=== PATIENT | female | born 1930 | race Caucasian/White ===

== ENCOUNTER 2017-06-10 14:22 | Emergency (ER) | payer MEDICARE, OTHER ==
[2017-06-10 14:59] LABS: CHLORIDE,CL 102 mmol/L (98-107); SODIUM,NA 136 mmol/L (136-145)
--- NOTE | 2017-06-10 15:50 | EDM.PDOC ---
ED HPI GENERAL MEDICAL PROBLEM - General Chief Complaint: Syncope Stated Complaint: syncope Time Seen by Provider: 06/10/17 14:30 Source of Information: Reports: Patient, Family - History of Present Illness INITIAL COMMENTS - FREE TEXT/NARRATIVE: Patient is a 87-year-old who was brought in status post syncopal episode patient 's history obtained from son says that she had passed out her eyes rolled and he put her in the car and on the way over she had another episode was she was here she was alert and oriented in no acute distress Onset: Sudden Duration: Hour(s): - Related Data Allergies Allergy/AdvReac Type Severity Reaction Status Date / Time No Known Allergies Allergy Verified 06/10/17 14:26 Home Meds: Home Meds Levothyroxine 25 mcg PO ACBREAKFAST 06/10/17 [History] Lisinopril/Hydrochlorothiazide [Lisinopril-Hctz 10-12.5 mg Tab] 40 mg PO DAILY 06/10/17 [History] atorvaSTATin [Lipitor] 40 mg PO BEDTIME 06/10/17 [History] ED ROS GENERAL - Review of Systems Review Of Systems: See Below Constitutional: Reports: No Symptoms HEENT: Reports: No Symptoms Respiratory: Reports: No Symptoms Cardiovascular: Reports: No Symptoms Endocrine: Reports: No Symptoms GI/Abdominal: Reports: No Symptoms : Reports: No Symptoms Musculoskeletal: Reports: No Symptoms Skin: Reports: No Symptoms Neurological: Reports: No Symptoms Psychiatric: Reports: No Symptoms Hematologic/Lymphatic: Reports: No Symptoms Immunologic: Reports: No Symptoms ED EXAM, GENERAL - Physical Exam Exam: See Below Exam Limited By: No Limitations General Appearance: Alert, WD/WN, No Apparent Distress Ears: Normal External Exam, Normal Canal, Hearing Grossly Normal, Normal TMs Nose: Normal Inspection, Normal Mucosa, No Blood Throat/Mouth: Normal Inspection, Normal Lips, Normal Teeth, Normal Gums, Normal Oropharynx, Normal Voice, No Airway Compromise Head: Atraumatic, Normocephalic Neck: Normal Inspection, Supple, Non-Tender, Full Range of Motion Respiratory/Chest: No Respiratory Distress, Lungs Clear, Normal Breath Sounds, No Accessory Muscle Use, Chest Non-Tender Cardiovascular: Normal Peripheral Pulses, Regular Rate, Rhythm, No Edema, No Gallop, No JVD, No Murmur, No Rub GI/Abdominal: Normal Bowel Sounds, Soft, Non-Tender, No Organomegaly, No Distention, No Abnormal Bruit, No Mass (Female) Exam: Deferred Rectal (Female) Exam: Deferred Back Exam: Normal Inspection, Full Range of Motion, NT Extremities: Normal Inspection, Normal Range of Motion, Non-Tender, Normal Capillary Refill, No Pedal Edema Neurological: Alert Psychiatric: Normal Affect, Normal Mood Skin Exam: Warm, Dry, Intact, Normal Color, No Rash Course - Vital Signs Last Recorded V/S: Last Vital Signs Temp 97.5 F 06/10/17 14:24 Pulse 93 06/10/17 14:24 Resp 18 06/10/17 14:24 BP 116/49 L 06/10/17 14:24 Pulse Ox 96 06/10/17 14:24 - Orders/Labs/Meds Orders: Active Orders 24 hr Category Date Time Status EKG Documentation Completion [RC] ASDIRECTED Care 06/10/17 14:30 Active Chest 1V Frontal [CR] Stat Exams 06/10/17 14:24 Taken Labs: Laboratory Tests 06/10/17 06/10/17 06/10/17 Range/Units 14:30 14:30 14:30 WBC 10.9 H (4.0-10.2) K/uL RBC 4.16 (3.77-5.09) M/uL Hgb 12.2 (11.7-15.5) g/dL Hct 37.7 (34.0-46.0) % MCV 90.6 D (84.0-98.0) fL MCH 29.3 (28.2-33.3) pg MCHC 32.4 (31.7-36.0) g/dL RDW 13.4 (11.2-14.1) % Plt Count 265 (150-350) K/uL Neut % (Auto) 51.8 (45.0-80.0) % Lymph % (Auto) 35.1 (10.0-50.0) % [place] % (Auto) 9.8 (2.0-14.0) % Eos % (Auto) 2.9 (0.0-5.0) % Baso % (Auto) 0.4 (0.0-2.0) % Neut # (Auto) 5.65 (1.40-7.00) K/uL Lymph # (Auto) 3.81 H (0.50-3.50) K/uL [place] # (Auto) 1.06 H (0.00-1.00) K/uL Eos # (Auto) 0.31 (0.00-0.50) K/uL Baso # (Auto) 0.04 (0.00-0.20) K/uL Sodium 136 (136-145) mmol/L Potassium 4.0 (3.5-5.1) mmol/L Chloride 102 (98-107) mmol/L Carbon Dioxide 26.8 (21.0-32.0) mmol/L BUN 27 H (7-18) mg/dL Creatinine 1.14 (0.51-1.17) mg/dL Est Cr Clr Drug Dosing TNP Estimated GFR (MDRD) 45 mL/min Glucose 129 H (74-106) mg/dL Calcium 9.1 (8.5-10.1) mg/dL Troponin I 0.005 (0.000-0.056) ng/mL Departure - Departure Time of Disposition: 15:51 Disposition: Against Medical Advice 07 Clinical Impression: Syncope and collapse - Discharge Information Forms: ED Department Discharge - Problem List & Annotations (1) Syncope and collapse SNOMED Code(s): 131379202 Code(s): R55 - SYNCOPE AND COLLAPSE Status: Acute - Problem List Review Problem List Initiated/Reviewed/Updated: Yes - My Orders Last 24 Hours: My Active Orders 06/10/17 14:24 Chest 1V Frontal [CR] Stat 06/10/17 14:30 EKG Documentation Completion [RC] ASDIRECTED - Assessment/Plan Last 24 Hours: My Active Orders 06/10/17 14:24 Chest 1V Frontal [CR] Stat 06/10/17 14:30 EKG Documentation Completion [RC] ASDIRECTED Plan: I would like to admit patient for OBS related to the 2 syncope episodes, but patient is refusing at this time. States "I feel fine" . I would like to place her on a cardiac rehabilitation specialist for OBS. Patient has stated she will go home AMA. Patient does not want to stay in the hospital.
== END 2017-06-10 16:05 | disposition left against medical advice (07) ==
LOC: LL.ED 14:22
DX: R55 Syncope and collapse (principal)
CPT/HCPCS: 36000; 36415; 71010; 80048; 84484; 85025; 93005; 99283; 99284

== ENCOUNTER 2021-02-04 19:00 | Emergency (ER) | payer MEDICARE, OTHER ==
[2021-02-04] MEDS ORDERED: Famotidine 20 MG/2 ML SDV IVPUSH ONE (19:02)
[2021-02-04] MEDS ORDERED: Sodium Chloride 0.9% 10 ML Syringe FLUSH PRN (19:02)
--- NOTE | 2021-02-04 19:02 | EDM.PDOC ---
ED HPI GENERAL MEDICAL PROBLEM - General Chief Complaint: Neuro Symptoms/Deficits Stated Complaint: stroke code Time Seen by Provider: 02/04/21 19:02 Source of Information: Reports: Patient, EMS, Family ([id number], Kelly), Old Records ([facility] chart/EMR). Denies: EMS Notes Reviewed (Not available at time of dictation) History Limitations: Reports: Altered Mental Status - History of Present Illness INITIAL COMMENTS - FREE TEXT/NARRATIVE: Patient was brought to the emergency room via ambulance with evaluator in accompaniment with IV placed and initial IV bolus of 300 cc of normal saline. Stat Accu-Chek by the evaluator was 111 mg percent. The patient is an extremely poor historian secondary to her confusion and probable CVA with the majority of history taken from her [id number], which is extremely limited. Based on her history no significant recent problems. The patient's status was normal at noon based on history from her grandson, who found her kneeling on the floor at about 5 PM this afternoon with his mother called at that time. The patient exhibited some right-sided weakness, moderate confusion, moderate dysarthria, and difficulty following commands. Per history from the [id number]-[id number] no recent chest pain/pressure, heart flutter, dizziness, orthostasis, orthopnea, diaphoresis, paresthesias, recent decreased exercise tolerance, or any other anginal-type symptoms. No recent history of abdominal pain, heartburn, nausea, diarrhea, melena, gross hematochezia, or any food intolerance, including fatty foods, etc.. No apparent recent UTI symptoms. In addition, no apparent recent fever, cough, wheezing, dyspnea, etc.. She did receive her second Covid injection on 01/01/2021 with some mild right leg arthralgias at that time. No history of recent headaches, visual changes, diplopia, or other change in neurological status prior to today's episode. No apparent current pain or discomfort. No history of significant fall, head injury, etc. Onset: Today, Unknown/Unsure Onset Date: 02/04/21 Duration: Constant Location: Reports: Other (No pain) Improves with: Reports: None Worsens with: Reports: None Context: Reports: Other (As above). Denies: Sick Contact, Trauma Associated Symptoms: Reports: Confusion, Weakness (Right hemiparesis). 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 Denies: [place] Other Cardiovascular History: Syncopal episode on 06/10/2017 with patient refusing further work-up at that time. Evidence of probable lateral wall cardiac ischemia by EKG on that visit with no known previous history of [place], cardiac procedures, etc. 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 Neurological History: Reports: None. Denies: Seizure Endocrine/Metabolic History: Reports: Hypothyroidism. Denies: Diabetes, Type I, Diabetes, Type II, IDDM - Past Surgical History HEENT Surgical History: Reports: Oral Surgery, Other (See Below) Other HEENT Surgeries/Procedures: Complete teeth extraction with patient having dentures Musculoskeletal Surgical History: Reports: ORIF, Other (See Below) Other Musculoskeletal Surgeries/Procedures:: ORIF/adenike placement of right tibia with subsequent removal. Social & Family History - Living Situation & Occupation Living situation: Reports: Alone (In her apartment) ED ROS GENERAL - Review of Systems Review Of Systems: Unable To Obtain Reason Not Obtained: Indirect history from her [id number] as above. ED EXAM, NEURO - Physical Exam Exam: See Below Exam Limited By: Altered Mental Status General Appearance: Alert, No Apparent Distress Eye Exam: Right Eye: Vision Changes (Questionable loss in right eye), Bilateral Eye: EOMI, Normal Fundi, Normal Inspection (No nystagmus or vertigo), PERRL Ears: Normal External Exam, Normal Canal, Normal TMs, Hearing Loss (Mild bilateral presbycusis) Nose: Normal Inspection, Normal Mucosa, No Blood Throat/Mouth: Normal Gums, Normal Oropharynx, Normal Voice, No Airway Comp romise. No: Normal Teeth (Complete absent dentition with no dentures present), Dysphagia, Inflammation, Perioral Cyanosis Head Exam: Atraumatic, Normocephalic. No: Facial Swelling, Facial Tenderness, Sinus Tenderness Neck: Supple, Non-Tender, Full Range of Motion, Carotid Bruit (Mild bilateral carotid bruits versus transmitted heart sounds). No: Lymphadenopathy (R), Thyromegaly Respiratory/Chest: No Respiratory Distress, No Accessory Muscle Use, Chest Non- Tender, Rales (Mild bilateral baseline). No: Lungs Clear, Normal Breath Sounds, Pleural Rub, Accessory Muscle Use, Retractions Cardiovascular: Normal Peripheral Pulses, Regular Rate, Rhythm, No Edema, No Gallop, No JVD, No Rub, Systolic Murmur (Borderline 1/6 ANDREZ of the aortic valve.). No: Gallop/S3, Gallop/S4, Friction Rub GI/Abdominal: Normal Bowel Sounds, Soft, Non-Tender, No Organomegaly, No Distention, No Abnormal Bruit, No Mass, Pelvis Stable, Other (Obese). No: Guarding (Female) Exam: Deferred Rectal (Female) Exam: Deferred Neurological: Alert, Normal Mood/Affect, Normal Dorsiflexion, Normal Plantar Flexion, Normal Reflexes, Oriented x 3, Difficulty Walking, Other (Patient is unable to perform commands. Mild right-sided hemiparesis mainly in the arm and hand. Patient is not able to completely perform neurological exam including [id number] test, pronator test, etc. Note moderate dysarthria and confusion with additional aphasia component.). No: Normal Gait, Babinski Back Exam: Normal Inspection, Full Range of Motion. No: CVA Tenderness (L), CVA Tenderness (R), Muscle Spasm Extremities: Normal Inspection, Normal Range of Motion, Non-Tender, No Pedal Edema, Normal Capillary Refill Psychiatric: Normal Affect, Normal Mood Skin Exam: Warm, Dry, Intact, Normal Color, No Rash. No: Diaphoretic, Wound/Incision #1 Interpretation EKG Date: 02/04/21 Time: 19:18 Rhythm: NSR Rate (Beats/Min): 90 Inlet: Normal (Neutral) P-Wave: Present (Noisy baseline) QRS: Normal (0.06 seconds) ST-T: Other (Stable T wave inversions in leads aVL and V2-V4 with mild progression to V5) FL/PQ Interval: 0.17 seconds. Pulmonary hypertension by EKG Comparison: Change From Previous EKG (As above since 06/10/2017) EKG Interpretation Comments: 1. Possible lateral wall cardiac ischemia 2. Pulmonary hypertension by EKG Course - Vital Signs Last Recorded V/S: Last Vital Signs Temp 36.2 C 02/04/21 19:15 Pulse 86 02/04/21 19:45 Resp 25 H 02/04/21 19:45 BP 148/92 H 02/04/21 19:45 Pulse Ox 100 02/04/21 19:45 - Orders/Labs/Meds Orders: Active Orders 24 hr Category Date Time Status Cardiac Monitoring [RC] STAT Care 02/04/21 19:02 Active Communication Order [RC] PER UNIT ROUTINE Care 02/04/21 19:02 Active EKG Documentation Completion [RC] ASDIRECTED Care 02/04/21 19:02 Active NIH Stroke Scale [RC] ASDIRECTED Care 02/04/21 19:02 Active Oxygen Therapy, ED [RC] PRN Care 02/04/21 19:02 Active Peripheral IV Care [RC] . DIRECTED Care 02/04/21 19:02 Active Pulse Oximetry [RC] CONTINUOUS Care 02/04/21 19:02 Active Up With Assistance [RC] ASDIRECTED Care 02/04/21 19:02 Active Vital Signs [RC] PFP Care 02/04/21 19:02 Active Nothing per Oral Now Diet [DIET] Diet 02/04/21 Breakfast Active Chest 1V Frontal [CR] Stat Exams 02/04/21 19:02 Taken Head wo Cont [CT] Stat Exams 02/04/21 19:02 Taken PROLACTIN [REF] Stat Lab 02/04/21 19:15 Received UA W/MICROSCOPIC [URIN] Stat Lab 02/04/21 19:02 Ordered Sodium Chloride 0.9% [Saline Flush] Med 02/04/21 19:02 Active 10 ml FLUSH ASDIRECTED PRN Obtain Past Medical Record [OM.PC] Stat Oth 02/04/21 19:02 Active Peripheral IV Insertion Adult [OM.PC] Stat Oth 02/04/21 19:02 Ordered Resuscitation Status Stat Resus Stat 02/04/21 19:02 Ordered Medication Orders Sodium Chloride (Sodium Chloride 0.9% 10 Ml Syringe) 10 ml FLUSH ASDIRECTED PRN PRN Reason: Keep Vein Open Last Admin: 02/04/21 19:31 Dose: 10 ml Documented by: GWENDOLYN Labs: Laboratory Tests 02/04/21 02/04/21 02/04/21 Range/Units 19:15 19:15 19:15 WBC 8.5 (4.0-10.2) K/uL RBC 4.62 (3.77-5.09) M/uL Hgb 12.8 (11.7-15.5) g/dL Hct 40.9 (34.0-46.0) % MCV 88.5 (84.0-98.0) fL MCH 27.7 L (28.2-33.3) pg MCHC 31.3 L (31.7-36.0) g/dL RDW 13.4 (11.2-14.1) % Plt Count 232 (150-350) K/uL Neut % (Auto) 71.4 (45.0-80.0) % Lymph % (Auto) 16.1 (10.0-50.0) % Braxton % (Auto) 10.3 (2.0-14.0) % Eos % (Auto) 2.0 (0.0-5.0) % Baso % (Auto) 0.2 (0.0-2.0) % Neut # (Auto) 6.09 (1.40-7.00) K/uL Lymph # (Auto) 1.37 (0.50-3.50) K/uL Braxton # (Auto) 0.88 (0.00-1.00) K/uL Eos # (Auto) 0.17 (0.00-0.50) K/uL Baso # (Auto) 0.02 (0.00-0.20) K/uL PT 9.9 (9.5-12.0) SEC INR 1.0 APTT 24.5 (24.5-32.8) SEC D-Dimer, Quantitative 562 H (0-400) ng/mL Sodium (136-145) mmol/L Potassium (3.5-5.1) mmol/L Chloride (98-107) mmol/L Carbon Dioxide (21.0-32.0) mmol/L BUN (7-18) mg/dL Creatinine (0.51-1.17) mg/dL Est Cr Clr Drug Dosing Estimated GFR (MDRD) mL/min Glucose (70-99) mg/dL Lactic Acid (0.4-2.0) mmol/L Uric Acid (2.6-7.2) mg/dL Calcium (8.5-10.1) mg/dL Magnesium (1.8-2.4) mg/dL Total Bilirubin (0.2-1.0) mg/dL AST (15-37) U/L ALT (12-78) U/L Alkaline Phosphatase (46-116) IU/L Creatine Kinase (26-308) U/L Creatine Kinase Index (0.0-2.5) % CK-MB (CK-2) (0.00-3.60) ng/mL Troponin I (0.000-0.056) ng/mL NT-Pro-B Natriuret Pep (0-125) pg/mL Total Protein (6.4-8.2) g/dL Albumin (3.4-5.0) g/dL TSH, Ultra Sensitive (0.358-3.740) mIU/mL 02/04/21 02/04/21 Range/Units 19:15 19:15 WBC (4.0-10.2) K/uL RBC (3.77-5.09) M/uL Hgb (11.7-15.5) g/dL Hct (34.0-46.0) % MCV (84.0-98.0) fL MCH (28.2-33.3) pg MCHC (31.7-36.0) g/dL RDW (11.2-14.1) % Plt Count (150-350) K/uL Neut % (Auto) (45.0-80.0) % Lymph % (Auto) (10.0-50.0) % Braxton % (Auto) (2.0-14.0) % Eos % (Auto) (0.0-5.0) % Baso % (Auto) (0.0-2.0) % Neut # (Auto) (1.40-7.00) K/uL Lymph # (Auto) (0.50-3.50) K/uL Braxton # (Auto) (0.00-1.00) K/uL Eos # (Auto) (0.00-0.50) K/uL Baso # (Auto) (0.00-0.20) K/uL PT (9.5-12.0) SEC INR APTT (24.5-32.8) SEC D-Dimer, Quantitative (0-400) ng/mL Sodium 140 (136-145) mmol/L Potassium 4.0 (3.5-5.1) mmol/L Chloride 102 (98-107) mmol/L Carbon Dioxide 27.2 (21.0-32.0) mmol/L BUN 22 H (7-18) mg/dL Creatinine 0.82 (0.51-1.17) mg/dL Est Cr Clr Drug Dosing TNP Estimated GFR (MDRD) > 60 mL/min Glucose 117 H (70-99) mg/dL Lactic Acid 1.3 (0.4-2.0) mmol/L Uric Acid 5.0 (2.6-7.2) mg/dL Calcium 9.4 (8.5-10.1) mg/dL Magnesium 1.4 L (1.8-2.4) mg/dL Total Bilirubin 0.7 (0.2-1.0) mg/dL AST 20 (15-37) U/L ALT 19 (12-78) U/L Alkaline Phosphatase 75 (46-116) IU/L Creatine Kinase 71 (26-308) U/L Creatine Kinase Index 1.8 (0.0-2.5) % CK-MB (CK-2) 1.30 (0.00-3.60) ng/mL Troponin I 0.017 (0.000-0.056) ng/mL NT-Pro-B Natriuret Pep 3585 H (0-125) pg/mL Total Protein 7.4 (6.4-8.2) g/dL Albumin 3.9 (3.4-5.0) g/dL TSH, Ultra Sensitive 2.524 (0.358-3.740) mIU/mL Meds: Medications Generic Name Dose Route Start Last Admin Trade Name Freq PRN Reason Stop Dose Admin Sodium Chloride 10 ml 02/04/21 19:02 02/04/21 19:31 Sodium Chloride 0.9% 10 Ml Syringe FLUSH 10 ml ASDIRECTED PRN Administration Keep Vein Open Discontinued Medications Generic Name Dose Route Start Last Admin Trade Name Freq PRN Reason Stop Dose Admin Famotidine 40 mg 02/04/21 19:02 02/04/21 19:31 Famotidine 20 Mg/2 Ml Sdv IVPUSH 02/04/21 19:03 40 mg ONETIME ONE Administration - Radiology Interpretation Free Text/Narrative:: 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 No pulmonary infiltrates, pneumothorax or significant CHF. Telephone consultation at 7:33 PM with the radiology department at [facility]. Preliminary verbal report of noncontrast CT scanning of the head was relatively normal with exception of moderate cerebral atrophy and cerebral microvascular disease. Possible old right basilar ganglion/lacunar infarct. No cerebral hemorrhage, etc. CT Results Date: 02/04/21 CT Results Time: 19:33 Departure - Departure Time of Disposition: 20:10 Disposition: DC/Tfer to Acute Hospital 02 Condition: Poor Clinical Impression: Hypothyroidism (acquired), PAC (premature atrial contraction), D-dimer, elevated, Hypomagnesemia CVA (cerebral vascular accident) Qualifiers: CVA mechanism: occlusion Precerebral and cerebral artery: middle cerebral artery Laterality of affected vessel: right Qualified Code(s): I63.511 - Cerebral infarction due to unspecified occlusion or stenosis of right middle cerebral artery Hypertension Qualifiers: Hypertension type: essential hypertension Qualified Code(s): I10 - Essential (primary) hypertension Hyperlipidemia Qualifiers: Hyperlipidemia type: unspecified Qualified Code(s): E78.5 - Hyperlipidemia, unspecified Osteoarthritis Qualifiers: Osteoarthritis location: multiple joints Osteoarthritis type: primary Qualified Code(s): M89.49 - Other hypertrophic osteoarthropathy, multiple sites COPD (chronic obstructive pulmonary disease) Qualifiers: COPD type: emphysema Emphysema type: panlobular Qualified Code(s): J43.1 - Panlobular emphysema Coronary artery disease Qualifiers: Coronary Disease-Associated Artery/Lesion type: [place] artery [place] vs. transplanted heart: [place] heart Associated angina: without angina Qualified Code(s): I25.10 - Atherosclerotic heart disease of [place] coronary artery without angina pectoris CHF (congestive heart failure) Qualifiers: Heart failure type: unspecified Heart failure chronicity: acute Qualified Code(s): I50.9 - Heart failure, unspecified - Discharge Information *PRESCRIPTION DRUG MONITORING PROGRAM REVIEWED*: Not Applicable *COPY OF PRESCRIPTION DRUG MONITORING REPORT IN PATIENT TARA: Not Applicable Referrals: PCP,None [Primary Care Provider] - Forms: ED Department Discharge, Interfacility Transfer EMTALA Sepsis Event Note (ED) - Focused Exam Vital Signs: Vital Signs Temp Pulse Resp BP Pulse Ox Pulse Ox 02/04/21 19:45 86 25 H 148/92 H 100 02/04/21 19:30 94 24 H 145/80 H 99 02/04/21 19:28 96 96 02/04/21 19:15 36.2 C 24 L 19 170/90 H 91 L - Problem List & Annotations (1) CVA (cerebral vascular accident) SNOMED Code(s): 248512829 Code(s): I63.9 - CEREBRAL INFARCTION, UNSPECIFIED Status: Acute Priority: High Onset Date: 02/04/21 Annotation/Comment:: Probable CVA with no improvement of her neurological status during her care in our emergency room. Stroke code was called by the evaluator prior to arrival to this facility with entire treatment team present at time of patient's arrival. Telephone consultation and 7:[address] Eason, stroke neurologist at [facility], who does accept the patient for further treatment and e valuation. Per his instructions patient should be transferred immediately without waiting for results of CT scan of the head, blood work, etc. with aspirin also to be held at this time per his instructions. Blood pressures were significantly improved prior to patient's transfer via ambulance with evaluator accompaniment. FULL CODE STATUS confirmed with the patient's [id number], Kelly. Note NIH stroke score of 6 with no evidence of dysphagia or aspiration. Qualifiers: CVA mechanism: occlusion Precerebral and cerebral artery: middle cerebral artery Laterality of affected vessel: right Qualified Code(s): I63.511 - Cerebral infarction due to unspecified occlusion or stenosis of right middle cerebral artery (2) D-dimer, elevated SNOMED Code(s): 706682910 Code(s): R79.89 - OTHER SPECIFIED ABNORMAL FINDINGS OF BLOOD CHEMISTRY Status: Acute Priority: High Onset Date: 02/04/21 Annotation/Comment:: Likely secondary to her CVA. No clinical evidence of DVT or PE. Further work- up by accepting providers depending on her clinical course. (3) CHF (congestive heart failure) SNOMED Code(s): 64576556 Code(s): I50.9 - HEART FAILURE, UNSPECIFIED Status: Acute Priority: High Onset Date: 02/04/21 Annotation/Comment:: No chest pain or anginal complaints. Only minimal CHF by clinical exam with no significant chest x-ray findings. BNP is elevated with only mild secondary change of troponin I with otherwise normal cardiac enzymes. Consider echocardiogram by accepting providers. Qualifiers: Heart failure type: unspecified Heart failure chronicity: acute Qualified Code(s): I50.9 - Heart failure, unspecified (4) Coronary artery disease SNOMED Code(s): 59406007 Code(s): I25.10 - ATHSCL HEART DISEASE OF [place] CORONARY ARTERY W/O ANG PCTRS Status: Chronic Priority: Medium Annotation/Comment:: No chest pain or anginal type symptoms. Note distant history of syncope in May 2017 with patient refusing cardiac work-up at that time and evidence of probable lateral wall ischemia. Cardiology consultation by accepting providers depending on her clinical course. Qualifiers: Coronary Disease-Associated Artery/Lesion type: [place] artery [place] vs. transplanted heart: [place] heart Associated angina: without angina Qualified Code(s): I25.10 - Atherosclerotic heart disease of [place] coronary artery without angina pectoris (5) Hypertension SNOMED Code(s): 40450974 Code(s): I10 - ESSENTIAL (PRIMARY) HYPERTENSION Status: Chronic Priority: High Annotation/Comment:: Somewhat elevated initially however improved prior to transfer without any treatment required. The patient apparently has long since discontinued her antihypertensive medication in the past. Qualifiers: Hypertension type: essential hypertension Qualified Code(s): I10 - Essential (primary) hypertension (6) Hyperlipidemia SNOMED Code(s): 41619252 Code(s): E78.5 - HYPERLIPIDEMIA, UNSPECIFIED Status: Chronic Priority: Medium Annotation/Comment:: Patient has also apparently previously discontinued her anticholesterol therapy in the past Qualifiers: Hyperlipidemia type: unspecified Qualified Code(s): E78.5 - Hyperlipidemia, unspecified (7) Osteoarthritis SNOMED Code(s): 880579097 Code(s): M19.90 - UNSPECIFIED OSTEOARTHRITIS, UNSPECIFIED SITE Status: Chronic Priority: Medium Annotation/Comment:: Stable by history with no recent fall or injury. Qualifiers: Osteoarthritis location: multiple joints Osteoarthritis type: primary Qualified Code(s): M89.49 - Other hypertrophic osteoarthropathy, multiple sites (8) Hypothyroidism (acquired) SNOMED Code(s): 970289224 Code(s): E03.9 - HYPOTHYROIDISM, UNSPECIFIED Status: Chronic Priority: Medium Annotation/Comment:: TSH normal today. She has been compliant with her Synthroid. (9) COPD (chronic obstructive pulmonary disease) SNOMED Code(s): 30220944 Code(s): J44.9 - CHRONIC OBSTRUCTIVE PULMONARY DISEASE, UNSPECIFIED Status: Chronic Priority: Medium Annotation/Comment:: COPD by chest x-ray with no current medical therapy, recent fever, or recent bronchitic type symptoms. Qualifiers: COPD type: emphysema Emphysema type: panlobular Qualified Code(s): J43.1 - Panlobular emphysema (10) Hypomagnesemia SNOMED Code(s): 521581324 Code(s): E83.42 - HYPOMAGNESEMIA Status: Acute Priority: Medium Onset Date: 02/04/21 Annotation/Comment:: Note occasional PACs versus sinus arrhythmia. Consider IV magnesium sulfate by accepting providers. (11) PAC (premature atrial contraction) SNOMED Code(s): 434310393 Code(s): I49.1 - ATRIAL PREMATURE DEPOLARIZATION Status: Acute Priority: Medium Onset Date: 02/04/21 Annotation/Comment:: As above - Problem List Review Problem List Initiated/Reviewed/Updated: Yes - My Orders Last 24 Hours: My Active Orders 02/04/21 Breakfast Nothing per Oral Now Diet [DIET] 02/04/21 19:02 Cardiac Monitoring [RC] STAT Communication Order [RC] PER UNIT ROUTINE EKG Documentation Completion [RC] ASDIRECTED NIH Stroke Scale [RC] ASDIRECTED Oxygen Therapy, ED [RC] PRN Peripheral IV Care [RC] . DIRECTED Pulse Oximetry [RC] CONTINUOUS Up With Assistance [RC] ASDIRECTED Vital Signs [RC] PFP Chest 1V Frontal [CR] Stat Head wo Cont [CT] Stat UA W/MICROSCOPIC [URIN] Stat Sodium Chloride 0.9% [Saline Flush] 10 ml FLUSH ASDIRECTED PRN Obtain Past Medical Record [OM.PC] Stat Peripheral IV Insertion Adult [OM.PC] Stat Resuscitation Status Stat 02/04/21 19:15 PROLACTIN [REF] Stat - Assessment/Plan Last 24 Hours: My Active Orders 02/04/21 Breakfast Nothing per Oral Now Diet [DIET] 02/04/21 19:02 Cardiac Monitoring [RC] STAT Communication Order [RC] PER UNIT ROUTINE EKG Documentation Completion [RC] ASDIRECTED NIH Stroke Scale [RC] ASDIRECTED Oxygen Therapy, ED [RC] PRN Peripheral IV Care [RC] . DIRECTED Pulse Oximetry [RC] CONTINUOUS Up With Assistance [RC] ASDIRECTED Vital Signs [RC] PFP Chest 1V Frontal [CR] Stat Head wo Cont [CT] Stat UA W/MICROSCOPIC [URIN] Stat Sodium Chloride 0.9% [Saline Flush] 10 ml FLUSH ASDIRECTED PRN Obtain Past Medical Record [OM.PC] Stat Peripheral IV Insertion Adult [OM.PC] Stat Resuscitation Status Stat 02/04/21 19:15 PROLACTIN [REF] Stat Assessment:: As above Plan: As above. Extensive precautions were given to the patient and her [id number], who are in agreement with the treatment plan. Ambulance transfer to [facility] in [place] as above.
[2021-02-04 19:35] LABS: PTT,PARTIAL THROMBOPLSTIN TIME 24.5 SEC (24.5-32.8)
[2021-02-04 19:48] LABS: CHLORIDE,CL 102 mmol/L (98-107); SODIUM,NA 140 mmol/L (136-145)
== END 2021-02-04 20:10 ==
LOC: LL.ED 19:00
DX: I63.511 Cerebral infarction due to unspecified occlusion or stenosis of right middle cerebral artery (principal); E03.9 Hypothyroidism, unspecified; I49.1 Atrial premature depolarization; R79.1 Abnormal coagulation profile; E83.42 Hypomagnesemia; I10 Essential (primary) hypertension; J44.9 Chronic obstructive pulmonary disease, unspecified; Z79.899 Other long term (current) drug therapy
CPT/HCPCS: 36415; 70450; 71045; 80053; 82550; 82553; 83605; 83735; 83880; 84146; 84443; 84484; 84550; 85025; 85379; 85610; 85730; 93005; 93010; 96374; 99285; 99285-25; J3490

== ENCOUNTER 2021-03-01 15:54 | Emergency (ER) | payer MEDICARE, OTHER ==
--- NOTE | 2021-03-01 16:49 | EDM.PDOC ---
ED HPI GENERAL MEDICAL PROBLEM - General Chief Complaint: General Stated Complaint: neck and back pain Time Seen by Provider: 03/01/21 16:10 Source of Information: Reports: Patient, Family History Limitations: Reports: No Limitations - History of Present Illness INITIAL COMMENTS - FREE TEXT/NARRATIVE: Pt presents with upper neck pain Has been intermittent Was recently diagnosed with lumbar spinal stenosis per family Had lumbar MRI at that time No cervical MRI No parathesias No weakness Has not taken anything for pain except Tylenol 500 mg one time Onset: Gradual Duration: Intermittent Location: Reports: Neck Quality: Reports: Ache Treatments 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: Reports: Acetaminophen Bilateral Lower Leg Pain Score (Numeric/FACES): 7 Neck Pain Score (Numeric/FACES): 7 - Related Data Allergies Allergy/AdvReac Type Severity Reaction Status Date / Time lisinopril AdvReac Cough Verified 03/01/21 16:04 Home Meds: Home Meds Levothyroxine 25 mcg PO ACBREAKFAST 06/10/17 [History] Aspirin [Aspirin EC] 1 tab PO DAILY 03/01/21 [History] Clopidogrel [Plavix] 1 tab PO DAILY 03/01/21 [History] Cyanocobalamin (Vitamin B-12) [B-12] 1 tab PO BEDTIME 03/01/21 [History] Furosemide [Lasix] 1 tab PO ASDIRECTED 03/01/21 [History] Magnesium Oxide [Magnesium] 2 cap PO DAILY 03/01/21 [History] Pantoprazole Sodium [Protonix] 1 tab PO BEDTIME 03/01/21 [History] Spironolactone [Aldactone] 1 tab PO DAILY 03/01/21 [History] atorvaSTATin [Lipitor] 1.5 tab PO BEDTIME 03/01/21 [History] carvediloL [Carvedilol] 1 tab PO BID 03/01/21 [History] Past Medical History HEENT History: Reports: Hard of Hearing, Other (See Below) Other HEENT History: Mild presbycusis Cardiovascular History: Reports: CAD, High Cholesterol, Hypertension, Syncope, Other (See Below) Other Cardiovascular History: Syncopal episode on 06/10/2017 with patient refusing further work-up at that time. Evidence of probable lateral wall cardiac ischemia by EKG on that visit with no known previous history of [place], cardiac procedures, etc. 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 Neurological History: Reports: None Endocrine/Metabolic History: Reports: Hypothyroidism - Infectious Disease History Infectious Disease History: Reports: Chicken Pox, Measles, Mumps - Past Surgical History HEENT Surgical History: Reports: Oral Surgery, Other (See Below) Other HEENT Surgeries/Procedures: Complete teeth extraction with patient having dentures Musculoskeletal Surgical History: Reports: ORIF, Other (See Below) Other Musculoskeletal Surgeries/Procedures:: ORIF/adenike placement of right tibia with subsequent removal. Social & Family History - Tobacco Use Tobacco Use Status *Q: Never Tobacco User Second Hand Smoke Exposure: No - Caffeine Use Caffeine Use: Reports: None - Recreational Drug Use Recreational Drug Use: No - Living Situation & Occupation Living situation: Reports: Alone (In her apartment) ED ROS GENERAL - Review of Systems Review Of Systems: See Below HEENT: Reports: No Symptoms Musculoskeletal: Reports: Neck Pain, Back Pain ED EXAM, GENERAL - Physical Exam Exam: See Below Exam Limited By: No Limitations General Appearance: Alert, WD/WN, No Apparent Distress Neck: Limited Range of Motion, Other (Mildly tender with palpation of paracervical fly Spine non-tender) Neurological: No Motor/Sensory Deficits, Other (No focal findings) Course - Vital Signs Last Recorded V/S: Last Vital Signs Temp 99.3 F 03/01/21 16:06 Pulse 88 03/01/21 16:06 Resp 19 03/01/21 16:06 BP 141/78 H 03/01/21 16:06 Pulse Ox 98 03/01/21 16:06 - Re-Assessments/Exams Free Text/Narrative Re-Assessment/Exam: 03/01/21 16:47 Pt given Naprosyn 500 mg TID prn take home Pt to follow up in clinic Departure - Departure Time of Disposition: 17:00 Disposition: Home, Self-Care 01 Clinical Impression: Neck pain - Discharge Information *PRESCRIPTION DRUG MONITORING PROGRAM REVIEWED*: Not Applicable *COPY OF PRESCRIPTION DRUG MONITORING REPORT IN PATIENT TARA: Not Applicable Referrals: Bay Banegas PA [Primary Care Provider] - Additional Instructions: Rx Naprosyn 500 mg TID prn Follow up in clinic Sepsis Event Note (ED) - Evaluation Sepsis Screening Result: No Definite Risk - Focused Exam Vital Signs: Vital Signs Temp Pulse Resp BP Pulse Ox 03/01/21 16:06 99.3 F 88 19 141/78 H 98
== END 2021-03-01 16:57 | disposition home or self-care (01) ==
LOC: LL.ED 15:54
DX: M54.2 Cervicalgia (principal); I25.10 Atherosclerotic heart disease of native coronary artery without angina pectoris; E78.00 Pure hypercholesterolemia, unspecified; I10 Essential (primary) hypertension; M19.90 Unspecified osteoarthritis, unspecified site; E03.9 Hypothyroidism, unspecified; Z79.82 Long term (current) use of aspirin; Z79.02 Long term (current) use of antithrombotics/antiplatelets; Z79.899 Other long term (current) drug therapy; Z88.8 Allergy status to other drugs, medicaments and biological substances
CPT/HCPCS: 99283

== ENCOUNTER 2021-08-23 12:56 | Emergency (ER) | payer MEDICARE, OTHER ==
[2021-08-23] MEDS ORDERED: Sodium Chloride 0.9% 10 ML Syringe FLUSH PRN (13:03)
--- NOTE | 2021-08-23 13:05 | EDM.PDOC ---
ED HPI GENERAL MEDICAL PROBLEM - General Chief Complaint: Neuro Symptoms/Deficits Stated Complaint: slurring speech, weakness Time Seen by Provider: 08/23/21 13:00 Source of Information: Reports: Patient, Family - History of Present Illness INITIAL COMMENTS - FREE TEXT/NARRATIVE: patient presents to the ED with her sons for neurological symptoms that started at 12:15 and have resolved at arrival. Patient lives alone and did get up and have a normal day. She states she felt weak prior to her sons arrival at 12:15 but didn't notice specific deficits until she tried to talk to him. her words were garbled, according to the son, the left face drooped and the right hand could not control the tv remote. No history of stroke. not on a blood thinner. They got into the car and came here. 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 Patient has been well, had her covid vaccines in December. at arrival feels fine, but weak Onset: Today, Sudden Onset Time: 12:15 Duration: Resolved Prior to Arrival - Related Data Allergies Allergy/AdvReac Type Severity Reaction Status Date / Time lisinopril AdvReac Cough Verified 08/23/21 12:57 Home Meds: Home Meds Levothyroxine 25 mcg PO ACBREAKFAST 06/10/17 [History] Magnesium Oxide [Magnesium] 2 cap PO DAILY 03/01/21 [History] Spironolactone [Aldactone] 1 tab PO DAILY 03/01/21 [History] atorvaSTATin [Lipitor] 1.5 tab PO BEDTIME 03/01/21 [History] carvediloL [Carvedilol] 1 tab PO BID 03/01/21 [History] cephALEXin [Keflex] 500 mg PO Q8H #15 cap 08/23/21 [Rx] Past Medical History HEENT History: Reports: Hard of Hearing, Other (See Below) Other HEENT History: Mild presbycusis Cardiovascular History: Reports: CAD, High Cholesterol, Hypertension, Syncope, Other (See Below) Other Cardiovascular History: Syncopal episode on 06/10/2017 with patient refusing further work-up at that time. Evidence of probable lateral wall cardiac ischemia by EKG on that visit with no known previous history of [place], cardiac procedures, etc. 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 Neurological History: Reports: None Endocrine/Metabolic History: Reports: Hypothyroidism - Infectious Disease History Infectious Disease History: Reports: Chicken Pox, Measles, Mumps - Past Surgical History HEENT Surgical History: Reports: Oral Surgery, Other (See Below) Other HEENT Surgeries/Procedures: Complete teeth extraction with patient having dentures Musculoskeletal Surgical History: Reports: ORIF, Other (See Below) Other Musculoskeletal Surgeries/Procedures:: ORIF/adenike placement of right tibia with subsequent removal. Social & Family History - Caffeine Use Caffeine Use: Reports: None - Alcohol Use Alcohol Use History: No Alcohol Use in Last Twelve Months: No - Recreational Drug Use Recreational Drug Use: No Drug Use in Last 12 Months: No - Living Situation & Occupation Living situation: Reports: Alone (In her apartment) ED ROS GENERAL - Review of Systems Review Of Systems: Comprehensive ROS is negative, except as noted in HPI. Constitutional: Reports: No Symptoms HEENT: Reports: No Symptoms Respiratory: Reports: No Symptoms Cardiovascular: Reports: No Symptoms Endocrine: Reports: No Symptoms GI/Abdominal: Reports: No Symptoms : Reports: No Symptoms Musculoskeletal: Reports: Other (right arm weakness earlier, resolved) Neurological: Reports: Change in Speech (earlier, resolved now) Psychiatric: Reports: No Symptoms Hematologic/Lymphatic: Reports: No Symptoms ED EXAM, NEURO - Physical Exam Exam: See Below Exam Limited By: No Limitations General Appearance: Alert, WD/WN, No Apparent Distress Eye Exam: Bilateral Eye: EOMI, Normal Inspection, PERRL Ears: Normal External Exam, Normal Canal, Hearing Grossly Normal, Normal TMs Nose: Normal Inspection, Normal Mucosa, No Blood Throat/Mouth: Normal Inspection, Normal Lips, Normal Teeth, Normal Oropharynx, Normal Voice, No Airway Compromise Head Exam: Atraumatic Neck: Normal Inspection Respiratory/Chest: No Respiratory Distress, Lungs Clear, Chest Non-Tender Cardiovascular: Normal Peripheral Pulses, Regular Rate, Rhythm, No Edema, No Murmur GI/Abdominal: Normal Bowel Sounds, Soft, Non-Tender Neurological: Alert, Normal Mood/Affect, Normal Dorsiflexion, CN II-XII Intact, Normal Plantar Flexion, Normal Gait, No Motor/Sensory Deficits, Oriented x 3, Other (negative pronator drift, normal STEPHEN, normal heel to guzman, normal speech). No: Abnormal Gait, Abnormal Finger to Nose, Abnormal Sensation, Abnormal Light Touch, Tremor Extremities: Normal Inspection, Normal Range of Motion, No Pedal Edema #1 Interpretation EKG Date: 08/23/21 Time: 13:24 Rhythm: NSR Comparison: Other: (poor tracing, baseline artifact, NO STEMI) Course - Orders/Labs/Meds Orders: Active Orders 24 hr Category Date Time Status EKG Documentation Completion [RC] ASDIRECTED Care 08/23/21 13:04 Active Peripheral IV Care [RC] . DIRECTED Care 08/23/21 13:04 Active Ang Head [CT] Stat Exams 08/23/21 13:03 Taken Ang Neck [CT] Stat Exams 08/23/21 13:03 Taken Head wo Cont [CT] Stat Exams 08/23/21 13:03 Taken CULTURE URINE [RM] Stat Lab 08/23/21 13:42 Received Sodium Chloride 0.9% [Saline Flush] Med 08/23/21 13:03 Active 10 ml FLUSH ASDIRECTED PRN Peripheral IV Insertion Adult [OM.PC] Routine Oth 08/23/21 13:03 Ordered Medication Orders Sodium Chloride (Sodium Chloride 0.9% 10 Ml Syringe) 10 ml FLUSH ASDIRECTED PRN PRN Reason: Keep Vein Open Labs: Laboratory Tests 08/23/21 08/23/21 08/23/21 Range/Units 13:14 13:14 13:14 WBC 8.6 (4.0-10.2) K/uL RBC 4.76 (3.77-5.09) M/uL Hgb 11.8 (11.7-15.5) g/dL Hct 39.0 (34.0-46.0) % MCV 81.9 L D (84.0-98.0) fL MCH 24.8 L (28.2-33.3) pg MCHC 30.3 L (31.7-36.0) g/dL RDW 15.0 H (11.2-14.1) % Plt Count 390 H (150-350) K/uL Neut % (Auto) 64.7 (45.0-80.0) % Lymph % (Auto) 23.0 (10.0-50.0) % [place] % (Auto) 9.3 (2.0-14.0) % Eos % (Auto) 2.8 (0.0-5.0) % Baso % (Auto) 0.2 (0.0-2.0) % Neut # (Auto) 5.59 (1.40-7.00) K/uL Lymph # (Auto) 1.99 (0.50-3.50) K/uL [place] # (Auto) 0.80 (0.00-1.00) K/uL Eos # (Auto) 0.24 (0.00-0.50) K/uL Baso # (Auto) 0.02 (0.00-0.20) K/uL ESR 28 (0-42) mm/hr PT 9.9 (9.5-12.0) SEC INR 1.0 Sodium 140 (136-145) mmol/L Potassium 3.8 (3.5-5.1) mmol/L Chloride 102 (98-107) mmol/L Carbon Dioxide 29.3 (21.0-32.0) mmol/L Anion Gap 8.7 (7-15) meq/L BUN 16 (7-18) mg/dL Creatinine 0.93 (0.51-1.17) mg/dL Est Cr Clr Drug Dosing TNP Estimated GFR (MDRD) 57 mL/min Glucose 151 H (70-99) mg/dL Calcium 9.3 (8.5-10.1) mg/dL Total Bilirubin 0.4 (0.2-1.0) mg/dL AST 16 (15-37) U/L ALT 19 (12-78) U/L Alkaline Phosphatase 84 (46-116) IU/L Troponin I High Sens 12 (<=51) ng/L C-Reactive Protein < 0.2 (<=0.9) mg/dL Total Protein 7.3 (6.4-8.2) g/dL Albumin 3.4 (3.4-5.0) g/dL Specimen Type Urine Color Urine Appearance Urine pH (5.0-9.0) Ur Specific [place] (1.005-1.030) Urine Protein (NEGATIVE) mg/dL Urine Glucose (UA) (NEGATIVE) mg/dL Urine Ketones (NEGATIVE) mg/dL Urine Occult Blood (NEGATIVE) Urine Nitrite (NEGATIVE) Urine Bilirubin (NEGATIVE) Urine Urobilinogen (0.2-1.0) E.U./dL Ur Leukocyte Esterase (NEGATIVE) Urine RBC /HPF Urine WBC /HPF Ur Epithelial Cells /LPF Urine Bacteria (NONE TO FEW) /HPF Urinalysis Comment SARS-CoV-2 RNA (JORDAN) (NEGATIVE) 08/23/21 08/23/21 Range/Units 13:37 13:42 WBC (4.0-10.2) K/uL RBC (3.77-5.09) M/uL Hgb (11.7-15.5) g/dL Hct (34.0-46.0) % MCV (84.0-98.0) fL MCH (28.2-33.3) pg MCHC (31.7-36.0) g/dL RDW (11.2-14.1) % Plt Count (150-350) K/uL Neut % (Auto) (45.0-80.0) % Lymph % (Auto) (10.0-50.0) % [place] % (Auto) (2.0-14.0) % Eos % (Auto) (0.0-5.0) % Baso % (Auto) (0.0-2.0) % Neut # (Auto) (1.40-7.00) K/uL Lymph # (Auto) (0.50-3.50) K/uL [place] # (Auto) (0.00-1.00) K/uL Eos # (Auto) (0.00-0.50) K/uL Baso # (Auto) (0.00-0.20) K/uL ESR (0-42) mm/hr PT (9.5-12.0) SEC INR Sodium (136-145) mmol/L Potassium (3.5-5.1) mmol/L Chloride (98-107) mmol/L Carbon Dioxide (21.0-32.0) mmol/L Anion Gap (7-15) meq/L BUN (7-18) mg/dL Creatinine (0.51-1.17) mg/dL Est Cr Clr Drug Dosing Estimated GFR (MDRD) mL/min Glucose (70-99) mg/dL Calcium (8.5-10.1) mg/dL Total Bilirubin (0.2-1.0) mg/dL AST (15-37) U/L ALT (12-78) U/L Alkaline Phosphatase (46-116) IU/L Troponin I High Sens (<=51) ng/L C-Reactive Protein (<=0.9) mg/dL Total Protein (6.4-8.2) g/dL Albumin (3.4-5.0) g/dL Specimen Type Urincc Urine Color Genesis Urine Appearance Slightly cloudy Urine pH 5.5 (5.0-9.0) Ur Specific [place] 1.025 (1.005-1.030) Urine Protein Negative (NEGATIVE) mg/dL Urine Glucose (UA) Negative (NEGATIVE) mg/dL Urine Ketones Trace H (NEGATIVE) mg/dL Urine Occult Blood Negative (NEGATIVE) Urine Nitrite Negative (NEGATIVE) Urine Bilirubin Small H (NEGATIVE) Urine Urobilinogen 1.0 (0.2-1.0) E.U./dL Ur Leukocyte Esterase Trace H (NEGATIVE) Urine RBC Not seen /HPF Urine WBC 0-5 /HPF Ur Epithelial Cells Many H /LPF Urine Bacteria Moderate H (NONE TO FEW) /HPF Urinalysis Comment SARS-CoV-2 RNA (JORDAN) Negative (NEGATIVE) Meds: Medications Generic Name Dose Route Start Last Admin Trade Name Freq PRN Reason Stop Dose Admin Sodium Chloride 10 ml 08/23/21 13:03 Sodium Chloride 0.9% 10 Ml Syringe FLUSH ASDIRECTED PRN Keep Vein Open Discontinued Medications Generic Name Dose Route Start Last Admin Trade Name Freq PRN Reason Stop Dose Admin Ceftriaxone Sodium 1 gm/ 100 mls @ 200 mls/hr 08/23/21 14:04 08/23/21 15:36 Sodium Chloride IV 08/23/21 14:33 200 mls/hr ONETIME ONE Administration Iopamidol 100 ml 08/23/21 13:16 08/23/21 14:08 Iopamidol 755 Mg/Ml 100 Ml Bottle IVPUSH 08/23/21 13:17 100 ml ONETIME STA Administration - Radiology Interpretation Free Text/Narrative:: Ct head without, ct angio head and neck with out any acute findings. major vessels are widely patent, no vascular malformation, no aneurysm. Common carotid patents, no significant luminal narrowing. widely patent bilateral vertebral arteries interpreted by Radiology - Re-Assessments/Exams Free Text/Narrative Re-Assessment/Exam: 08/23/21 13:32 patient is at baseline at arrival and cele concurs. No deficit. Was on aspirin in the past,. not now. Will work up and treat as TIA. Check lab,s ekg, covid, ct and ct angios 08/23/21 14:04 labs are returning normal, has a uti, rocephin 1 gram IV ordered 08/23/21 Discussed with Patient probably TIA. Start aspirin 324 mg PO daily. needs echocardiogram this week. return for signs of deficit that does not resolve. will await cultures of the urine for changing antibiotics. Family and patient did not have questions Departure - Departure Time of Disposition: 15:23 Disposition: Home, Self-Care 01 Condition: Good Clinical Impression: TIA (transient ischemic attack), UTI (urinary tract infection) - Discharge Information *PRESCRIPTION DRUG MONITORING PROGRAM REVIEWED*: Not Applicable *COPY OF PRESCRIPTION DRUG MONITORING REPORT IN PATIENT TARA: Not Applicable Prescriptions: cephALEXin [Keflex] 500 mg PO Q8H #15 cap Instructions: Transient Ischemic Attack, [id number], Urinary Tract Infection, Adult, [id number] Referrals: Bay Banegas PA [Primary Care Provider] - Forms: ED Department Discharge Additional Instructions: You were given iv antibiotics today. This is for a bladder infection Start the oral prescription tomorrow. urine culture is pending. Start 324 mg of aspirin a day. You need to make an appointment for close follow up with your PCP for echocardiogram. Return to the Ed for neurological symptoms that return and persist. the rest of your testing was negative without any narrowing of the vessels of the head or neck - My Orders Last 24 Hours: My Active Orders 08/23/21 13:03 Ang Head [CT] Stat Ang Neck [CT] Stat Head wo Cont [CT] Stat Sodium Chloride 0.9% [Saline Flush] 10 ml FLUSH ASDIRECTED PRN Peripheral IV Insertion Adult [OM.PC] Routine 08/23/21 13:04 EKG Documentation Completion [RC] ASDIRECTED Peripheral IV Care [RC] . DIRECTED 08/23/21 13:42 CULTURE URINE [RM] Stat - Assessment/Plan Last 24 Hours: My Active Orders 08/23/21 13:03 Ang Head [CT] Stat Ang Neck [CT] Stat Head wo Cont [CT] Stat Sodium Chloride 0.9% [Saline Flush] 10 ml FLUSH ASDIRECTED PRN Peripheral IV Insertion Adult [OM.PC] Routine 08/23/21 13:04 EKG Documentation Completion [RC] ASDIRECTED Peripheral IV Care [RC] . DIRECTED 08/23/21 13:42 CULTURE URINE [RM] Stat
[2021-08-23] MEDS ORDERED: Iopamidol 755 Mg/ML 100 ML Bottle IVPUSH STA (13:16)
[2021-08-23 13:37] LABS: ANION GAP 8.7 meq/L (7-15); CHLORIDE,CL 102 mmol/L (98-107); SODIUM,NA 140 mmol/L (136-145)
[2021-08-23] MEDS ORDERED: cefTRIAXone 1 GM in Sodium Chloride 0.9% 100 ML IV ONE (14:04)
== END 2021-08-23 16:24 | disposition home or self-care (01) ==
LOC: LL.ED 12:56
DX: G45.9 Transient cerebral ischemic attack, unspecified (principal); N39.0 Urinary tract infection, site not specified; I25.10 Atherosclerotic heart disease of native coronary artery without angina pectoris; E78.00 Pure hypercholesterolemia, unspecified; I10 Essential (primary) hypertension; J44.9 Chronic obstructive pulmonary disease, unspecified; E03.9 Hypothyroidism, unspecified; M19.90 Unspecified osteoarthritis, unspecified site; Z88.8 Allergy status to other drugs, medicaments and biological substances; Z79.899 Other long term (current) drug therapy; Z20.822 Contact with and (suspected) exposure to COVID-19
CPT/HCPCS: 36415; 70450; 70496; 70498; 80053; 81001; 84484; 85025; 85610; 85652; 86140; 87086; 93005; 96365; 99285; J0696; Q9967; U0002; 93010; 99284